=== PATIENT | female | born 1995 | race Caucasian/White ===

== ENCOUNTER 2017-08-19 18:59 | Emergency (ER) | payer BC ==
[2017-08-19 20:43] VITALS: BP 131/78
[2017-08-19] MEDS ORDERED: Sulfamethox/Trimethoprim DS 800/160* TAB PO ONE (21:12)
--- NOTE | 2017-08-19 21:13 | ED ---
GI/ HPI - HPI Summary HPI Summary: 3 days of dysuria, frequency, and urgency of urination. 22 yr old female with prior UTIs and feels like she has one. She states she has been drinking cranberry juice hoping it would get better but it isn't She has no other complaints. No NV. No vag discharge. - History of Current Complaint Chief Complaint: UCGU Time Seen by Provider: 08/19/17 20:40 Stated Complaint: URINARY COMPLAINT Hx Last Menstrual Period: 07/24/17 - Allergy/Home Medications Allergies/Adverse Reactions: Allergies Allergy/AdvReac Type Severity Reaction Status Date / Time No Known Allergies Allergy Verified 08/19/17 20:44 Home Medications: Home Medications Sertraline* [Zoloft*] 200 mg PO DAILY 08/19/17 [History Confirmed 08/19/17] PMH/Surg Hx/FS Hx/Imm Hx Previously Healthy: Yes - Surgical History Surgery Procedure, Year, and Place: T&A, Ear Tubes x 2 Infectious Disease History: No Infectious Disease History: Denies: Traveled Outside the [place] in Last 30 Days - Social History Alcohol Use: Weekly Substance Use Type: Reports: Marijuana Substance Use Comment - Amount & Last Used: daily Smoking Status (MU): Light Every Day Tobacco Smoker Type: Cigarettes Amount Used/How Often: a few times a week Review of Systems Negative: Fever, Chills Positive: burning, dysuria, frequency, urgency All Other Systems Reviewed And Are Negative: Yes Physical Exam Triage Information Reviewed: Yes Vital Signs On Initial Exam: Initial Vitals Temp Pulse Resp BP Pulse Ox 98 F 75 14 131/78 100 08/19/17 20:38 08/19/17 20:38 08/19/17 20:38 08/19/17 20:38 08/19/17 20:38 Vital Signs Reviewed: Yes Appearance: Positive: Well-Appearing, No Pain Distress Skin: Positive: Warm Head/Face: Positive: Normal Head/Face Inspection Eyes: Positive: EOMI ENT: Positive: Normal ENT inspection Respiratory/Lung Sounds: Positive: Clear to Auscultation, Breath Sounds Present Cardiovascular: Positive: RRR. Negative: Murmur Abdomen Description: Positive: Nontender. Negative: CVA Tenderness (R), CVA Tenderness (L) Musculoskeletal: Positive: Strength/ROM Intact Neurological: Positive: Sensory/Motor Intact, Alert, Oriented to Person Place, Time, CN Intact II-III Psychiatric: Positive: Normal - Tonie Coma Scale Best Eye Response: 4 - Spontaneous Best Motor Response: 6 - Obeys Commands Best Verbal Response: 5 - Oriented Diagnostics - Vital Signs Vital Signs Temp Pulse Resp BP Pulse Ox 08/19/17 20:38 98 F 75 14 131/78 100 - Laboratory Lab Results: Lab Results 08/19/17 08/19/17 Range/Units 20:41 20:43 POC Urine Color Yellow POC Urine Clarity Clear POC Urine pH 6.5 (5-9) POC Ur Specif [place] 1.025 (1.010-1.030) POC Urine Protein 2+ H (Negative) POC Ur Glucose (UA) Negative (Negative) POC Urine Ketones Negative (Negative) POC Urine Blood 3+ H (Negative) POC Urine Nitrite Negative (Negative) POC Urine Bilirubin Negative (Negative) POC Urine Urobilinogen 0.2 (Negative) POC U Leukocyte Esteras 1+ H (Negative) POC Ur Test Negative (Negative) Lab Statement: Any lab studies that have been ordered have been reviewed, and results considered in the medical decision making process. GIGU Course/Dx - Course Course Of Treatment: 22 yr old with UTI. DC to home in good condition. Bactrim DS script. - Diagnoses Provider Diagnoses: UTI (urinary tract infection) Discharge - Discharge Plan Condition: Good Disposition: HOME Prescriptions: Sulfamethox/Trimethoprim DS* [Bactrim DS 800/160 TAB*] 1 tab PO BID #14 tab Patient Education Materials: Urinary Tract Infection in Women (ED) Referrals: [facility] [Outside] Non Staff,Doctor [Primary Care Provider] -
--- NOTE | 2017-08-23 07:23 | UC ---
Progress - Progress Note Progress Note: Urine culture resistant to Bactrim. Nitrofurantoin sent in.
== END 2017-08-19 21:20 | disposition home or self-care (01) ==
LOC: UCCORT 18:59
DX: N39.0 Urinary tract infection, site not specified (principal); Z32.02 Encounter for pregnancy test, result negative; F17.210 Nicotine dependence, cigarettes, uncomplicated
CPT/HCPCS: 81003; 84702; 87077; 87086; 87186; 99212; A9270-GY; G0463

== ENCOUNTER 2018-07-14 16:29 | Emergency (ER) | payer BC ==
--- NOTE | 2018-07-14 16:49 | UC ---
Throat Pain/Nasal Jett HPI - HPI Summary HPI Summary: 23 yo female presents with dry cough and hoarse voice. She tells me that her cough started about a week ago and she thought it was viral so she has been taking ibuprofen and resting. Her cough and sore throat were bad 2-3 days ago, but feels like she is improving today. She is most concerned because she hasn't slept well due to her persistent dry cough. Denies fever, chills, SOB, chest pain, n/v. - History of Current Complaint Stated Complaint: SORE THROAT,VOICE LOSS,COUGH Time Seen by Provider: 07/14/18 16:48 Hx Obtained From: Patient Hx Last Menstrual Period: 07/24/17 Onset/Duration: Gradual Onset Cough: Nonproductive - Allergies/Home Medications Allergies/Adverse Reactions: Allergies Allergy/AdvReac Type Severity Reaction Status Date / Time No Known Allergies Allergy Verified 07/14/18 16:59 Home Medications: Home Medications Escitalopram Oxalate [Lexapro] 10 mg PO DAILY 07/14/18 [History Confirmed ] PMH/Surg Hx/FS Hx/Imm Hx Psychological History: Anxiety - Surgical History Surgical History: Yes Surgery Procedure, Year, and Place: T&A, Ear Tubes x 2 - Family History Known Family History: Positive: None - Social History Occupation: Student Lives: Dormitory/Roommates Alcohol Use: Weekly Substance Use Type: Marijuana Substance Use Comment - Amount & Last Used: daily Smoking Status (MU): Light Every Day Tobacco Smoker Type: Cigarettes Amount Used/How Often: a few times a week - Immunization History Most Recent Influenza Vaccination: no Review of Systems Constitutional: Negative Skin: Negative Eyes: Negative ENT: Negative Respiratory: Cough Cardiovascular: Negative Gastrointestinal: Negative Neurological: Negative Psychological: Negative All Other Systems Reviewed And Are Negative: Yes Physical Exam - Summary Physical Exam Summary: GENERAL: NAD. WDWN. No pain distress. SKIN: No rashes, sores, lesions, or open wounds. HEENT: Head: AT/NC Eyes: EOM intact. Conjunctiva clear without inflammation or discharge. Ears: Hearing grossly normal. TMs intact, no bulging, erythema, or edema. Nose: Nasal mucosa pink and moist. NTTP maxillary and frontal sinus. Throat: Posterior oropharynx without exudates, erythema, or tonsillar enlargement. Uvula midline. NECK: Supple. Nontender. No lymphadenopathy. CHEST: CTAB. No r/r/w. No accessory muscle use. Breathing comfortably and in no distress. CV: RRR. Without m/r/g. Pulses intact. Cap refill <2seconds NEURO: Alert. PSYCH: Age appropriate behavior. Triage Information Reviewed: Yes Vital Signs: Vital Signs: Temp Pulse Resp BP Pulse Ox 97.9 F 62 18 115/54 100 07/14/18 16:55 07/14/18 16:55 07/14/18 16:55 07/14/18 16:55 07/14/18 16:55 Vital Signs Reviewed: Yes Throat Pain/Nasal Course/Dx - Course Course Of Treatment: Cough - rx for tessalon and cough syrup for use at bedtime - Differential Dx/Diagnosis Provider Diagnoses: Cough Discharge - Sign-Out/Discharge Documenting (check all that apply): Patient Departure All imaging exams completed and their final reports reviewed: No Studies - Discharge Plan Condition: Stable Disposition: HOME Prescriptions: Benzonatate CAP* [Tessalon 100 MG CAP*] 100 mg PO TID PRN #21 cap PRN Reason: Cough Codeine Phosphate/Guaifenesin [Guaifen-Codeine 100-10 mg/5 ml] 5 ml PO BEDTIME PRN #35 ml MDD 5mL PRN Reason: Cough Patient Education Materials: Acute Bronchitis (ED) Referrals: Non Staff,Doctor [Primary Care Provider] - Additional Instructions: If you develop a fever, shortness of breath, chest pain, new or worsening symptoms - please call your PCP or go to the ED. - Billing Disposition and Condition Condition: STABLE Disposition: Home
[2018-07-14 16:59] VITALS: BP 115/54
== END 2018-07-14 17:18 | disposition home or self-care (01) ==
LOC: UCCORT 16:29
DX: R05 Cough (principal); J02.9 Acute pharyngitis, unspecified; F17.210 Nicotine dependence, cigarettes, uncomplicated
CPT/HCPCS: 87651; 99212; G0463

== ENCOUNTER 2019-02-26 20:21 | Emergency (ER) | payer BC ==
[2019-02-26 20:32] VITALS: BP 138/70
--- NOTE | 2019-02-26 20:38 | UC ---
UC General HPI - HPI Summary HPI Summary: head cold for a few days with post nasal drip. today R ear pain that now feels severe. - History of Current Complaint Chief Complaint: UCGeneralIllness Stated Complaint: RIGHT EAR PAIN Time Seen by Provider: 02/26/19 20:32 Hx Obtained From: Patient Hx Last Menstrual Period: 01/29/19 Onset/Duration: Gradual Onset Timing: Constant Pain Intensity: 6 Associated Signs & Symptoms: Negative: Fever, Headache - Allergy/Home Medications Allergies/Adverse Reactions: Allergies Allergy/AdvReac Type Severity Reaction Status Date / Time No Known Allergies Allergy Verified 02/26/19 20:31 PMH/Surg Hx/FS Hx/Imm Hx Previously Healthy: Yes - Surgical History Surgical History: Yes Surgery Procedure, Year, and Place: T&A, Ear Tubes x 2 - Family History Known Family History: Positive: None - Social History Alcohol Use: Weekly Alcohol Amount: 2 days a week Substance Use Type: Marijuana Substance Use Comment - Amount & Last Used: daily Smoking Status (MU): Current Some Day Smoker Type: Cigarettes Amount Used/How Often: a few times a week - Immunization History Most Recent Influenza Vaccination: no Vaccination Up to Date: Yes Review of Systems All Other Systems Reviewed And Are Negative: Yes Constitutional: Negative: Fever ENT: Positive: Ear Ache, Sinus Congestion. Negative: Sore Throat Neurological: Negative: Headache Physical Exam Triage Information Reviewed: Yes Appearance: Well-Appearing Vital Signs: Initial Vital Signs Temp 97.7 F 02/26/19 20:29 Pulse 68 02/26/19 20:29 Resp 16 02/26/19 20:29 BP 138/70 02/26/19 20:29 Pulse Ox 100 02/26/19 20:29 Vital Signs Reviewed: Yes Eyes: Positive: Conjunctiva Clear ENT: Positive: Pharynx normal, Nasal congestion, Nasal drainage - clear, TMs normal - L, TM red - R plus canal has some mild erythema., Other - No mastoid tenderness or auricular adenopathy, Neck: Positive: Supple, Nontender, No Lymphadenopathy Respiratory: Positive: Lungs clear, Normal breath sounds, No respiratory distress Cardiovascular: Positive: RRR, No Murmur Abdomen Description: Positive: Nontender Musculoskeletal: Positive: ROM Intact Neurological: Positive: Alert Psychological: Positive: Age Appropriate Behavior Skin Exam: Normal Course/Dx - Diagnoses Provider Diagnosis: Otitis media, Otitis externa Discharge - Sign-Out/Discharge Documenting (check all that apply): Patient Departure All imaging exams completed and their final reports reviewed: No Studies - Discharge Plan Condition: Stable Disposition: HOME Prescriptions: Amoxicillin PO (*) [Amoxicillin 875 MG (*)] 875 mg PO BID 10 Days #20 tab Neomyc/Polym/HC 1% OTIC SUSP* [Cortisporin Otic Susp 1%*] 4 drop RIGHT EAR TID 7 Days #1 btl Patient Education Materials: Otitis Externa (ED), Ear Infection (ED) Referrals: Tatum AMADOR,Tommy Betancourt [Primary Care Provider] - 7 Days - Billing Disposition and Condition Condition: STABLE Disposition: Home
== END 2019-02-26 20:43 | disposition home or self-care (01) ==
LOC: UCCORT 20:21
DX: H66.91 Otitis media, unspecified, right ear (principal); H60.91 Unspecified otitis externa, right ear; F17.210 Nicotine dependence, cigarettes, uncomplicated; J00 Acute nasopharyngitis [common cold]
CPT/HCPCS: 99212; G0463